=== PATIENT | male | born 1990 | race Caucasian/White ===

== ENCOUNTER 2024-12-24 11:01 | Emergency (ER) | payer OTHER, SELFPAY ==
[2024-12-24 11:17] VITALS: BP 131/77; PULSE 60; RESP 16; TEMP 37.1; O2SAT 96; BMI 27.8
--- NOTE | 2024-12-24 11:25 | XR_ITS ---
Examination: Hand, left 3 views Technique: Hand AP, oblique, lateral 3 views Date and time of exam: December 24, 2024 1132 hours INDICATIONS: Burn injury to the hand today with hand pain FINDINGS: No fracture. No cortical bone destruction No foreign body IMPRESSION: No fracture or opaque foreign body
--- NOTE | 2024-12-24 11:26 | PD.EDHAND ---
Upper Extremity Injury RME/HPI General Chief Complaint: Hand/Wrist Problems Stated Complaint: Left thumb injury today at work Time Seen by Provider: 12/24/24 11:15 Source: patient Arrival date/time: 12/24/24 11:01 34-year-old male with no known medical history presents to the emergency room with a chief complaint of pain and tenderness to the left thumb after an injury that occurred at work while he was fixing a lawnmower. Mode of arrival: ambulatory Limitations: no limitations Related Data Previous Rx's ?Medication ?Instructions ?Recorded cephalexin 500 mg capsule (Keflex) 500 mg PO Q6HR #40 caps 07/25/20 diphenhydramine HCl 25 mg capsule 25 mg PO Q6H PRN allergic reaction 07/25/20 (Benadryl) #30 caps methylprednisolone 4 mg tablets in 4 mg PO QDAY #21 tabs 07/25/20 a dose pack (Medrol (Alfredo)) Allergies Allergy/AdvReac Type Severity Reaction Status Date / Time No Known Allergies Allergy Verified 07/25/20 12:09 Review of Systems Review of Systems Systems Reviewed: All systems reviewed, normal except as documented Constitutional Constitutional: Reports system reviewed and no additional complaints, except as documented, Denies fatigue, Denies fever(s), Denies headache(s) and Denies weakness Eyes Eyes: Reports system reviewed and no additional complaints, except as documented, Denies blurry vision and Denies change in vision ENT Ears, Nose, Mouth, and Throat: Reports system reviewed and no additional complaints, except as documented, Denies otalgia, Denies headache(s), Denies nasal congestion, Denies throat swelling and Denies vertigo Cardiovascular Cardiovascular: Reports system reviewed and no additional complaints, except as documented, Denies chest pain, Denies dyspnea and Denies dyspnea on exertion Respiratory Respiratory: Reports system reviewed and no additional complaints, except as documented, Denies chest congestion, Denies cough, Denies dyspnea, Denies dyspnea on exertion and Denies wheezing Gastrointestinal Gastrointestinal: Reports system reviewed and no additional complaints, except as documented, Denies abdominal pain, Denies cramping, Denies nausea and Denies vomiting Genitourinary Genitourinary: Reports system reviewed and no additional complaints, except as documented, Denies dysuria and Denies hematuria Musculoskeletal Musculoskeletal: Reports system reviewed and no additional complaints, except as documented, Reports arthralgias, Denies back pain, Reports joint swelling and Reports limited range of motion Integumentary/Breasts Skin/Breast: Reports system reviewed and no additional complaints, except as documented and Denies wounds Neurologic Neurologic: Reports system reviewed and no additional complaints, except as documented, Denies confusion, Denies headache(s), Denies lack of coordination, Denies vertigo and Denies weakness Psychiatric Psychiatric: Reports system reviewed and no additional complaints, except as documented, Denies anxiety, Denies confusion, Denies depression, Denies paranoia, Denies suicidal ideation and Denies tactile hallucinations Endocrine Endocrine: Reports system reviewed and no additional complaints, except as documented and Denies fatigue Hematologic/Lymphatic Hematologic/Lymphatic: Reports system reviewed and no additional complaints, except as documented and Denies lymphadenopathy Allergic/Immunologic Allergic/Immunologic: Reports system reviewed and no additional complaints, except as documented, Denies throat swelling, Denies urticaria and Denies wheezing Past Medical History Past Medical History CARDIAC: Negative Congestive Heart Failure RESPIRATORY: Negative Chronic Obstructive Pulmonary Disease (COPD) GENITOURINARY: Negative Renal Disease ENDOCRINE: Negative Diabetes Mellitus Type 1 or Diabetes Mellitus Type 2 Social History SMOKING STATUS: Former smoker ED Exam General Limitations: Present no limitations General appearance: Present alert and in no apparent distress Head Head exam: Present atraumatic Eye Eye exam: Present normal appearance, PERRL and EOMI ENT ENT exam: Present normal exam, normal oropharynx and mucous membranes moist Neck Neck exam: Present normal inspection, full ROM and trachea midline Chest Chest inspection: Present normal inspection and symmetric chest wall rise Respiratory Respiratory exam: Present normal lung sounds bilaterally Cardiovascular Cardiovascular exam: Present regular rate, normal rhythm and normal heart sounds Abdominal Exam Abdominal exam: Present soft and normal bowel sounds Extremities Exam Extremities exam: Present normal inspection and full ROM Expanded Upper Extremity Exam Shoulder exam: Present normal inspection Arm exam: Present normal inspection Elbow exam: Present normal inspection Forearm/Wrist exam: Present normal inspection, tenderness and swelling Hand L/R front image:  1. normal inspection (Pain tenderness and swelling to the left thumb) Back Exam Back exam: Present normal inspection and full ROM Neurological Exam Neurological exam: Present alert, oriented X3 and CN II-XII intact Psychiatric Psychiatric exam: Present normal affect and normal mood Skin Skin exam: Present warm, dry, intact and normal color Course Quality Measures none Orders Category Date Time Status XR hand comp LT min 3V Stat Exams 12/24/24 11:25 Completed Ibuprofen Tab [Motrin Tab] Med 12/24/24 11:28 Discontinued 600 mg PO X1 ONE Vital Signs Vital signs: Vital Signs Temperature 98.7 F 12/24/24 11:17 Pulse Rate 60 12/24/24 11:17 Respiratory Rate 16 12/24/24 11:17 Blood Pressure 131/77 H 12/24/24 11:17 Pulse Oximetry (%) 96 12/24/24 11:17 Oxygen Delivery Method Room Air 12/24/24 11:17 O2 saturation 96% within normal limits Extremity Injury MDM Narrative MDM Narrative:: 34-year-old male with no known medical history presents to the emergency room with a chief complaint of pain and tenderness to the left thumb after an injury that occurred at work while he was fixing a lawnmower. The patient is hemodynamically stable and in no apparent distress. Physical examination shows pain and tenderness as well as swelling to the left thumb there is obvious bruising to the area already. X-ray of the left hand was completed and is negative for any acute fracture or dislocation. Patient was given a finger splint and discharged and educated to follow-up with his primary care provider and return to the emergency room for any evidence of worsening signs or symptoms Patient data External records reviewed:: [facility] previous records Clinical information provided by:: patient Social determinants that could affect healthcare access:: none Patient has the following chronic illnesses:: No chronic illness How is presenting disease/condition affected by chronic disease/condition?: no chronic disease Evaluation data The following diagnostics were reviewed and interpreted by me:: lab results and radiology exam(s) Lab and/or radiology exams considered but not ordered:: Labs and radiology exams considered and ordered Interpretation Summary: Left hand [id number]: No fracture. No cortical bone destruction No foreign body IMPRESSION: No fracture or opaque foreign body Medications / Prescriptions Medications or Prescriptions considered but not ordered:: No medication given Medication administrations:: Medication Administration History Discontinued Medications Ibuprofen (Ibuprofen Tab 600 Mg Tablet) 600 mg PO X1 ONE Stop: 12/24/24 11:29 Last Admin: 12/24/24 11:42 Dose: 600 mg Documented By: NOEMY No medication given Consultations Consultation(s) initiated? (list below): No Diagnosis Upper Extremity Injury Differential Diagnosis: sprain and strain of wrist, finger sprain, dislocation of finger and other (Finger fracture/finger dislocation) Most likely diagnosis given after review of the tests above:: Finger sprain Admission Indicated Admission indicated?: not indicated Admission Request Was there a request for admission?: No Disposition Plan Disposition Plan: Discharge Discharge Attestation Discharge Attestation: The patient and all family members were given an opportunity to ask questions and understood the discharge instructions. Discharge instructions specifically effects, indications for sooner follow up or return to the emergency department, and the expected course of current diagnosis. Patient condition: Stable Discharge Plan Plan Patient Disposition: HOME (Self Care) Disposition Comment: Stable Prescriptions/Referrals Prescriptions/Med Rec: No Action cephalexin [Keflex] 500 mg capsule 500 mg PO Q6HR Qty: 40 0RF methylprednisolone [Medrol (Alfredo)] 4 mg tablets,dose pack 4 mg PO QDAY Qty: 21 0RF Rx Instructions: use as directed. diphenhydramine HCl [Benadryl] 25 mg capsule 25 mg PO Q6H PRN (Reason: allergic reaction) Qty: 30 0RF Referrals: No Primary/Family,Physician [Primary Care Provider] - In 1 week Problem List Clinical Impression: Finger sprain Patient/Caregiver Discharge Instructions Education Materials: ED Finger Sprain Additional Instructions: Please follow-up with your primary care provider in the next 24 to 48 hours. X-ray was completed and was negative for any acute fracture or dislocation. Please return to the emergency room for any evidence of worsening signs or symptoms. Print Language: Citizen [place] Stand Alone Forms: Elissa Award Info., Work/School Release, Patient Portal Info Letter PA/CALLUM Supervising Physician PA/CALLUM Supervising Physician: Dr. Rider
[2024-12-24] MEDS: IBUPROFEN TAB 600 MG TABLET PO (11:42)
== END 2024-12-24 12:23 | disposition home or self-care (01) ==
PROVIDERS: Emergency Provider Emergency Medicine
DX: S63.602A Unspecified sprain of left thumb, initial encounter (principal)
CPT/HCPCS: 73130; 99283; A9270